=== PATIENT | male | born 1990 | race Caucasian/White ===

== ENCOUNTER 2023-11-19 17:45 | Emergency (ER) | payer OTHER, SELFPAY ==
[2023-11-19 17:51] VITALS: BP 149/98
[2023-11-19 19:51] VITALS: BP 143/80
[2023-11-19 19:52] VITALS: BP 143/80
--- NOTE | 2023-11-19 23:51 | ED.SKININJ ---
HPI-Injury
General
Chief Complaint: Skin Surface Trauma
Source: patient
Exam Limitations: none
Time Seen by Provider: 11/19/23 18:33
Nursing documentation reviewed up to this point in time: agreed with
Travel History
Have you had any contact with someone who has COVID-19?: No
Do you have any symptoms of coronavirus? Fever > 100 degrees, chills, cough, shortness of breath, sore throat, loss of taste or smell, muscle aches, or headache?: No
History of Present Illness-Injury
Is this injury a work related problem?: No
Is pt an associate of [facility]?: No
Initial Injury comments:
Accidentally got hit with a piece of wood. Sustained laceration to right upper lip. Injury occurred just [place] [employer]
Past History
Past History
ED Past Medical History: None
ED Past Surgical History: None
Social History
Tobacco: Non-smoker
Alcohol: None
Employment: Employed
Review of Systems
Review of Systems
Allergies reviewed?: Yes
All Other Systems: ROS reviewed and negative except as documented in HPI and ROS
Constitutional: Reports no symptoms
EENT: Reports no symptoms
Musculoskeletal: Reports no symptoms
Skin: Reports other (laceration to right upper lip)
Neurological: Reports no symptoms
Psychiatric: Reports no symptoms
Skin Exam
Laceration
Right Upper Lip:
Length in cm: 1.5
Orientation: vertical
Type of Laceration: simple
Any active bleeding?: no active bleeding
Distal skin color and temperature: normal-warm & good color
Normal distal neurovascular exam: Yes
Range of motion: full
Phy Exam
General Physical Exam
General Presentation: well appearing and no apparent distress
General age: appears stated age
General Skin: warm and dry
General Habitus: normal
General Mental: alert
General Hydration: appears well hydrated
ENT Exam
ENT Exam: other (no dental injury)
Musculoskeletal Exam
Musculoskeletal Exam: full ROM and neuro vasc intact
Skin Exam
Skin Exam: normal color, warm/dry and no rash
Psychiatric Exam
Psychiatric Exam: normal mood/affect
Course
Vital Signs
Initial and Last Documented VS:
Initial Vital Signs
Temp Pulse Resp BP Pulse Ox
98.0 F 86 16 149/98 98
11/19/23 17:51 11/19/23 17:51 11/19/23 17:51 11/19/23 17:51 11/19/23 17:51
Last Documented Vital Signs
Temp Pulse Resp BP Pulse Ox
98.0 F 76 16 143/80 98
11/19/23 17:51 11/19/23 19:52 11/19/23 17:51 11/19/23 19:52 11/19/23 17:51
Procedures
Laceration Closure
Right Upper Lip:
Status of Wound: clean
Description of Wound Edges: sharp
Preparation: cleaned with saline
Anesthesia: 1% Lidocaine
Revision/Debridement: routine- no revision
Wound exploration: explored to base- no FB
Type of Closure: single layer closure
Skin Closure Material: 6-0 prolene
*Critical Care Note
Total Time (30-74mins, 75-104mins- exclusive of procedures): Not Applicable
ED Attending Note
-
Portions of this chart may have been created with voice recognition software.� Occasional wrong word or��sound alike� substitutions may have occurred due to the inherent limitations of voice recognition software.
Discharge Plan
Departure
Patient Disposition: Home (Routine Discharge)
Date of Disposition: 11/19/23
Time of Disposition: 19:19
Patient with high blood pressure during this ER visit?: No
Condition: Good
Covid-19: Not Applicable
Discharge Problem:
Laceration of lip
Instructions: Laceration Repair With Stitches (DC)
Referrals:
Merritt Landeros MD [Family Provider] - (Sutures can be removed in 5-7 days.)
Interventions
Interventions:
*Risk Screen - Suicide Last Done: 11/19/23 19:51
*General Assessment Last Done: 11/19/23 19:51
*Neglect/Abuse Screening Last Done: 11/19/23 19:51
*Nursing Disposition Last Done: 11/19/23 19:52
ED-Skin Assessment Last Done: 11/19/23 18:58
Discharge Date and Time
Discharge Date/Time: 11/19/23 19:53
Print Language: MARTINIQUAIS
== END 2023-11-19 19:53 | disposition home or self-care (01) ==
LOC: EMR 17:45
PROVIDERS: EMERGENCY PHYSICIAN Emergency Medicine; FAMILY PHYSICIAN Internal Medicine
DX: S01.511A Laceration without foreign body of lip, initial encounter (principal); W22.8XXA Striking against or struck by other objects, initial encounter
CPT/HCPCS: 99282; 12011